=== PATIENT | female | born 1985 | race Caucasian/White ===

== ENCOUNTER 2016-09-29 08:21 | Emergency (ER) | payer SELFPAY ==
[~2016-09-29 08:21] MED LIST: PENICILLIN VK 500 MG TAB PO SCH
[2016-09-29 08:26] VITALS: BP 127/76; PULSE 84; RESP 16; TEMP 97.9; O2SAT 95
--- NOTE | 2016-09-29 08:44 | EDPHY ---
H & P Time Seen by Provider: 09/29/16 08:26 HPI/ROS: CHIEF COMPLAINT: Pain in mouth, alcohol withdrawal HISTORY OF PRESENT ILLNESS: 31-year-old homeless female presents to the emergency department by private vehicle complaining of diffuse pain in her gums for the last several days. She states that they have been bleeding. They are very painful and it is difficult for her to eat or drink. She has not noticed any facial swelling. Denies reported trauma. No fevers or chills. No dysphagia. No chest pain or difficulty breathing. Denies any other rash. No abdominal pain. No chest pain or difficulty breathing. Patient has a history of substance abuse. 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 She last drank alcohol yesterday morning. She has been through detox before. She has never had an alcohol withdrawal seizure in the past. She would like to become sober and would like resources to help her stop drinking alcohol. Her last menstrual period was 1 month ago and she denies . REVIEW OF SYSTEMS: Constitutional: No fever, no chills. Eyes: No double or blurry vision. ENT: No sore throat. Respiratory: No cough, no shortness of breath. Cardiac: No chest pain. Gastrointestinal: No abdominal pain, vomiting or diarrhea. Genitourinary: No dysuria. Musculoskeletal: No neck or back pain. Skin: No rashes. Neurological: No headache. Past Medical/Surgical History: Substance abuse Social History: Homeless from [place] Smoking Status: Heavy smoker Physical Exam: General Appearance: Alert, no distress. Afebrile. No apparent distress. She is not tremulous at rest. Her vital signs are stable. Eyes: Pupils equal and round. Extraocular motions are all intact. ENT: Mouth: Mucous membranes moist. She has diffuse erythema and swelling noted to the gingival mucosa. No signs of abscess. Poor dentition noted. Neck is supple without lymphadenopathy. No adherent white discharge in her mouth or signs of thrush. Respiratory: No wheezing, rhonchi, or rales, lungs are clear to auscultation. Cardiovascular: Regular rate and rhythm. Gastrointestinal: Abdomen is soft and nontender, no masses, no rebound or guarding, bowel sounds normal. Neurological: Alert and oriented x 3, cranial nerves II through XII grossly intact Skin: Warm and dry, no rashes. Musculoskeletal: Nontender to palpate along the cervical, thoracic or lumbar spine. Neck is supple. Extremities: Full range of motion and no peripheral edema. Psychiatric: Patient is oriented X 3, there is no agitation. Constitutional: Initial Vital Signs Temperature (C) 36.6 C 09/29/16 08:24 Heart Rate 84 09/29/16 08:24 Respiratory Rate 16 09/29/16 08:24 Blood Pressure 127/76 H 09/29/16 08:24 O2 Sat (%) 95 09/29/16 08:24 O2 Delivery Mode Room Air Allergies/Adverse Reactions: No Known Allergies Allergy (Unverified 09/29/16 08:26) Home Medications: Medication Instructions Recorded Penicillin V Potassium 500 mg PO TID #30 tablet 09/29/16 Medical Decision Making ED Course/Re-evaluation: 31-year-old female presents to the emergency department with diffuse gingival pain. Clinically it appears to be consistent with acute gingivitis. She will be treated with penicillin. She was given dental resources. The patient is also requesting resources to help her stop drinking alcohol. [facility] I do not think the patient requires any IV medication. Her vital signs are stable. She has never had alcohol withdrawal seizure. She is not tremulous at rest. She is comfortable being discharged to the [facility]. Her penicillin will be filled through the [facility]. Differential Diagnosis: Including but not limited to gingivitis, dental abscess, fractured tooth, dental caries, cellulitis, thrush, HIV Departure - Departure Disposition: Home, Routine, Self-Care Clinical Impression: Gingivitis, acute Alcohol withdrawal Qualifiers: Complication of substance-induced condition: uncomplicated Qualified Code(s): F10.230 - Alcohol dependence with withdrawal, uncomplicated Condition: Good Instructions: Gingivitis (ED), Alcohol Withdrawal (ED) Additional Instructions: Penicillin 3 times daily for 10 days. Gargle and switch around with warm salt water as discussed. Follow up with a dentist as soon as possible. Return to the emergency department if you developed fever, facial swelling, or if you feel worse in any way. You stated that you would like to stop drinking alcohol. You have been [facility] to the [facility] where they can help with your alcohol withdrawal related symptoms and you can obtain resources to help you stay sober. Referrals: [facility] [Outside] - As per Instructions [facility] [Outside] - As per Instructions Dental [facility] [Outside] - As per Instructions Dental [address] [Outside] - As per Instructions Dental [facility] [Outside] - As per Instructions [facility] Hours [Outside] - As per Instructions Prescriptions: Penicillin V Potassium 500 mg PO TID #30 tablet
== END 2016-09-29 09:14 | disposition home or self-care (01) ==
DX: K05.00 Acute gingivitis, plaque induced (principal); F10.230 Alcohol dependence with withdrawal, uncomplicated; F17.200 Nicotine dependence, unspecified, uncomplicated